=== PATIENT | female | born 1950 | race Caucasian/White ===

== ENCOUNTER 2024-09-15 12:00 | Emergency (ER) | payer OTHER ==
[~2024-09-15] VITALS: Ht 165.1 cm; Wt 59.0 kg
[2024-09-15 12:07] VITALS: TEMP 36.9; O2SAT 98
[2024-09-15] MEDS: KETOROLAC 30MG/ML VIAL IM ONE (13:53)
[2024-09-15] MEDS ORDERED: KETO10TA2 MT ×2 (16:31→19:45)
[2024-09-15 20:08] VITALS: BP 132/81; PULSE 101; RESP 14
== END 2024-09-15 20:33 | disposition home or self-care (01) ==
LOC: ER 12:00
DX: S82.092A Other fracture of left patella, initial encounter for closed fracture (principal); Z79.899 Other long term (current) drug therapy; Z88.0 Allergy status to penicillin; W18.39XA Other fall on same level, initial encounter; Y93.89 Activity, other specified; Y92.89 Other specified places as the place of occurrence of the external cause; Y99.8 Other external cause status
CPT/HCPCS: 99283; 29505; 73564; 96372; L1830; J1885